=== PATIENT | male | born 1975 | race Caucasian/White ===

== ENCOUNTER 2016-05-15 11:32 | Inpatient (IN) | payer OTHER ==
--- NOTE | ~2016-05-15 | PN ---
Unit #: [id number] #: [id number] Patient: JAMES OTERO [id number] [facility] [address] [place] [address] [id number] MR#: [id number] NAME: JAMES OTERO. ROOM: P121 Age: 40 Sex: M Admission Date: 05/15/2016 : 1975 Attending Physician: Aknita Darby M.D. Admitting Physician: Ankita Darby M.D. Primary Care Physician: Primary Care Physician Minerva MORTENSEN PROGRESS NOTES DATE 05/19/2016 DISCUSSION Mr. Otero is a 40-year-old, white male who was seen today and chart was reviewed and case was discussed with the staff who reports the patient has been rather very seclusive to himself and has not been coming out of his room a lot and has not been interacting or socializing. He has been taking the medication and tolerating them fairly well with no reported side effects. MENTAL STATUS EXAM Middle-aged white male who was casually dressed with fair personal hygiene, appears to be in no acute distress or discomfort. He was awake and alert on interaction with intact orientation. His mood was anxious with congruent affect. He denies any suicidal or homicidal ideation. His insight and judgement remains slightly impaired. TREATMENT PLAN 1. We will continue him on his current medications and treatment protocol. We will monitor his response to the medication and make further adjustments as needed. 2. We will continue to follow up. Dictated by... Leydi Seymour/juan TD: 05/20/2016 21:53 JOB #: [id number] Unit #: [id number] #: [id number] Patient: JAMES OTERO BALBINA PROGRESS NOTES Page 1 of 1 X Ankita Darby MD X PROGRESS NOTE
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
--- NOTE | ~2016-05-15 | HP ---
Unit #: [id number] #: [id number] Patient: JAMES ARMANDO [id number] [place] [address] [id number] MR#: [id number] NAME: JAMES ARMANDO. ROOM: P121 Age: 40 Sex: M Admission Date: 05/15/2016 : 1975 Attending Physician: Ankita Darby M.D. Admitting Physician: Ankita Darby M.D. Primary Care Physician: Primary Care Physician No HISTORY AND PHYSICAL HISTORY OF PRESENT ILLNESS James is a 40 year old admitted to [address] [place] [address] with depression and verbalizing wanting to hurt himself. PAST MEDICAL HISTORY 1. Long history of illicit drug use to include methamphetamine. 2. History of syphilis. 3. History of CHI. PAST SURGICAL HISTORY 1. PE tubes. 2. Lazy eye. ALLERGIES No known drug allergies. SOCIAL HISTORY He smokes 1 pack per day. Drinks alcohol on occasion. Admits to a history of illicit substance abuse to include methamphetamine. FAMILY HISTORY Medically noncontributory. REVIEW OF SYSTEMS CONSTITUTIONAL: No fever or chills. HEENT: Denies any sore throat, ear pain or runny nose. CARDIOVASCULAR: Denies chest pain, irregular heart rhythm or palpitations. CHEST: Denies shortness of breath or cough. No hemoptysis. GASTROINTESTINAL: Denies nausea, vomiting, diarrhea or chronic constipation. ENDOCRINE: Denies history of increased thirst or urination. No recent significant weight loss or gain. GENITOURINARY: Denies dysuria, frequency, or hematuria. SKIN: Denies any rashes. HEMATOLOGIC: Denies history of increased bleeding or bruising. MUSCULOSKELETAL: Denies any hot, swollen joints. No generalized muscle pain. NEUROLOGIC: Denies problems with vision or speech. No frequent, severe headaches. No numbness, tingling or weakness in any extremities. Denies loss of bladder or bowel control. CURRENT MEDICATIONS 1. Milk of Magnesia p.r.n. Unit #: [id number] #: [id number] Patient: JAMES ARMANDO 2. Maalox p.r.n. 3. Tylenol p.r.n. 4. Nicotine patch 14 mg daily. PHYSICAL EXAMINATION GENERAL: Alert, well-nourished, in no apparent distress. VITAL SIGNS: Blood pressure 110/60, heart rate 84, respirations 16, temperature 98.6. WEIGHT: 165. HEIGHT: 5 feet 8 inches. SKIN: Warm and dry without rash or lesion. HEENT: Normocephalic. TMs not viewed. Oral and nasal passages clear. Conjunctivae clear. PERRLA. EOMs intact. NECK: Supple without lymphadenopathy or thyromegaly. HEART: Regular rate and rhythm without murmur. LUNGS: Clear. ABDOMEN: Soft, nontender. : Not done. EXTREMITIES: No evidence of cyanosis, clubbing or edema. Moves all without focal deficit. NEUROLOGICAL: Grossly within normal limits. Cranial Nerves: II: Visual dewey are intact. III, IV AND : Extraocular movements are intact. Pupils are equal, round and reactive to light. V: Facial sensation is grossly normal. VII: Facial movements and expression are normal. VIII: Auditory acuity grossly intact. IX, X: Uvula is midline. Phonation is normal. XI: Patient shrugs shoulders and turns head normally. XII: Tongue protrudes in the midline. Sensory and Motor Function: Sensory and motor sensation is grossly normal. Motor: moves all extremities well. Coordination: Gait is normal. Deep Tendon Reflexes: Intact. IMPRESSION Psychiatric admission. RECOMMENDATIONS PSYCHIATRIC: Per psychiatrist. MEDICAL: See no contraindications to participate in facility's activities. MEDICAL PROGNOSIS Good. MEDICAL CONDITION Stable. Dictated by... Stacie Mckeon P.A.-C. for Leydi Brito/caio TD: 05/16/2016 15:03 JOB #: [id number] Unit #: [id number] #: [id number] Patient: PRABHAJAMES Aura HISTORY AND PHYSICAL Page 1 of 1 X Stacie Mckeon HISTORY AND PHYSICAL
--- NOTE | ~2016-05-15 | PN ---
Unit #: [id number] #: [id number] Patient: JAMES OTERO [id number] [facility] [address] [place] [address] [id number] MR#: [id number] NAME: JAMES OTERO. ROOM: P121 Age: 40 Sex: M Admission Date: 05/15/2016 : 1975 Attending Physician: Ankita Darby M.D. Admitting Physician: Ankita Darby M.D. Primary Care Physician: Primary Care Physician Minerva MORTENSEN PROGRESS NOTES DATE 05/20/2016 DISCUSSION Mr. Otero is a 40-year-old, white male who was seen today and chart was reviewed and case was discussed with the staff. He has been anxious, withdrawn and rather seclusive to himself. Meanwhile, he has been cooperative with treatment recommendations. He has been taking medications and tolerating them fairly well with no reported side effects. MENTAL STATUS EXAM Middle-aged white male who was casually dressed with fair personal hygiene, appears to be in no acute distress or discomfort. He was awake and alert with intact orientation. His mood was anxious with congruent affect. He denies any suicidal or homicidal ideation. His insight and judgement remains slightly impaired. TREATMENT PLAN 1. We will continue him on his current medications and treatment protocol. We will monitor his response to the medication and make further adjustments as needed. 2. We will continue to follow up. Dictated by... Leydi Seymour/juan TD: 05/21/2016 22:03 JOB #: [id number] Unit #: [id number] #: [id number] Patient: JAMES OTERO BALBINA PROGRESS NOTES Page 1 of 1 X Ankita Darby MD PROGRESS NOTE
--- NOTE | ~2016-05-15 | PN ---
Unit #: [id number] #: [id number] Patient: JAMES OTERO [id number] [facility] [address] [place] [address] [id number] MR#: [id number] NAME: JAMES OTERO. ROOM: P121 Age: 40 Sex: M Admission Date: 05/15/2016 : 1975 Attending Physician: Ankita Darby M.D. Admitting Physician: Ankita Darby M.D. Primary Care Physician: Primary Care Physician Minerva MORTENSEN PROGRESS NOTES DATE 05/16/2016 DISCUSSION Mr. Otero is a 40-year-old white male who was seen today and chart was reviewed and case was discussed with the staff. He has been anxious, restless, withdrawn, seclusive to himself. Meanwhile, he has been cooperative with treatment recommendations and has been taking medications and tolerating them fairly well with no reported side effects. MENTAL STATUS EXAMINATION Young white male who was casually dressed with fair personal hygiene and appears to be in slight distress or discomfort. He was awake and alert with impaired attention and concentration. His mood was anxious with congruent affect. His speech is slow and restricted in content. His thought processes were disorganized with some looseness of associations. His insight and judgement remains significantly impaired. TREATMENT PLAN 1. Will continue on his current medications and treatment protocol and will monitor his response to the medications and make further adjustments as needed. 2. Will continue to follow up. Dictated by... Leydi Seymour/mkh TD: 05/16/2016 16:37 JOB #: [id number] Unit #: [id number] #: [id number] Patient: JAMES OTERO BALBINA PROGRESS NOTES Page 1 of 1 X Ankita Darby MD PROGRESS NOTE
--- NOTE | ~2016-05-15 | DS ---
Unit #: [id number] #: [id number] Patient: JAMES ARMANDO [id number] [facility] [address] [place] [address] [id number] I MR#: [id number] NAME: JAMES ARMANDO. ROOM: [facility] Age: 40 Sex: M Admission Date: 05/15/2016 : 1975 Discharge Date: 05/21/2016 Attending Physician: Ankita Darby M.D. Primary Care Physician: Primary Care Physician No DISCHARGE SUMMARY IDENTIFYING DATA Mr. Armando is a 40-year-old white male, who is a resident of [place], [place], and is known to us from previous encounter, was self-referred to the hospital. DISCHARGE DIAGNOSES Psychiatric: Methamphetamine dependence, moderate; methamphetamine induced psychosis. Medical: None. Stressors: Moderate psychosocial stressors. HISTORY OF PRESENT ILLNESS Please see initial psychiatric evaluation for details. PAST PSYCHIATRIC HISTORY Please see initial psychiatric evaluation for details. PAST MEDICAL HISTORY Please see initial psychiatric evaluation for details. HOSPITAL COURSE The [facility] and was oriented to the hospital environment. Routine p.r.n. medications were initiated, and he was seen to be exhibiting bizarre behavior with acute psychosis and as such, Zyprexa 10 mg at bedtime was initiated and he was closely monitored. He was seen to be anxious, withdrawn, and for the most part, was very seclusive to himself, though he was taking the medications regularly and was tolerating them fairly well and was able to show a decent and therapeutic response with improvement in psychosis and as such, it was decided that he will be discharged home and will continue treatment on an outpatient basis. DISCHARGE MEDICATIONS Zyprexa 10 mg at bedtime for psychosis. DISCHARGE CONDITION Stable. PROGNOSIS Fair. Dictated by... Ankita Darby M.D. Unit #: [id number] #: [id number] Patient: JAMES ARMANDO IAA/modl TD: 05/21/2016 07:16 JOB #: [id number] DISCHARGE SUMMARY Page 1 of 1 X Ankita Darby MD X DISCHARGE SUMMARY
--- NOTE | ~2016-05-15 | PN ---
Unit #: [id number] #: [id number] Patient: JAMES OTERO [id number] [facility] [address] [place] [address] [id number] I MR#: [id number] NAME: JAMES OTERO. ROOM: P121 Age: 40 Sex: M Admission Date: 05/15/2016 : 1975 Attending Physician: Ankita Darby M.D. Admitting Physician: Ankita Darby M.D. Primary Care Physician: Primary Care Physician Minerva SERRATO NOTES DATE 05/18/2016 DISCUSSION Mr. Otero is a 40-year-old, white male who was seen today and chart was reviewed and case was discussed with the staff. He has been anxious, withdrawn and rather seclusive to himself. However, he has not shown any agitation or aggression. He has been taking medications and tolerating them fairly well with no reported side effects. MENTAL STATUS EXAM Young white male who was casually dressed with fair personal hygiene, appears to be in no acute distress or discomfort. He was awake and alert on interaction with intact orientation. His mood was anxious with congruent affect. He denies any suicidal or homicidal ideation. His insight and judgement remains slightly impaired. TREATMENT PLAN We will continue him on his current treatment protocol. We will monitor his response and make further adjustments as needed. Dictated by... Leydi Seymour/juan TD: 05/20/2016 01:30 JOB #: [id number] [facility] PROGRESS NOTES Page 1 of 1 X Ankita Darby MD PROGRESS NOTE
--- NOTE | ~2016-05-15 | PN ---
Unit #: [id number] #: [id number] Patient: JAMES OTERO [id number] [facility] [address] [place] [address] [id number] I MR#: [id number] NAME: JAMES OTERO. ROOM: P121 Age: 40 Sex: M Admission Date: 05/15/2016 : 1975 Attending Physician: Ankita Darby M.D. Admitting Physician: Ankita Darby M.D. Primary Care Physician: Primary Care Physician Minerva MORTENSEN PROGRESS NOTES DATE 05/17/2016 DISCUSSION Mr. Otero is a 40-year-old white male who was seen today and chart was reviewed and case was discussed with the staff. He has been anxious, withdrawn, depressed and rather seclusive to himself with bizarre behavior. Meanwhile, he has been taking medications and tolerating them fairly well with no reported side effects. MENTAL STATUS EXAMINATION Middle-aged white male who was casually dressed with fair personal hygiene and appears to be in no acute distress or discomfort. He was awake and alert with impaired attention and concentration. His mood was anxious with congruent affect. His speech is slow and restricted in content. His thought processes were disorganized with some looseness of association. His insight and judgement remains significantly impaired. TREATMENT PLAN 1. Will continue his current medications and treatment protocol. Will monitor his response to medications and make further adjustments as needed. 2. Will continue to follow up. Dictated by... Leydi Seymour/mkh TD: 05/17/2016 22:32 JOB #: [id number] Unit #: [id number] #: [id number] Patient: JAMES OTERO BALBINA PROGRESS NOTES Page 1 of 1 X Ankita Darby MD PROGRESS NOTE
== END 2016-05-21 12:00 | disposition home or self-care (01) | DRG 897 ==
LOC: P1S 11:32
PROC: HZ2ZZZZ Detoxification Services for Substance Abuse Treatment (ICD-10-PCS; principal; 2016-05-15)
DX: F15.20 Other stimulant dependence, uncomplicated (principal); F15.259 Other stimulant dependence with stimulant-induced psychotic disorder, unspecified; A53.9 Syphilis, unspecified; Z56.0 Unemployment, unspecified; Z59.0 Homelessness